=== PATIENT | male | born 1990 | race Caucasian/White ===

== ENCOUNTER 2016-09-29 18:02 | Emergency (ER) | payer SELFPAY ==
[~2016-09-29] VITALS: Wt 117.9 kg
[2016-09-29] MEDS ORDERED: MEDROL DOSEPAK4 MG PO (19:35)
[2016-09-29] MEDS ORDERED: AMOXICILLIN500 M2 PO (19:35)
== END 2016-09-29 18:29 | disposition home or self-care (01) ==
LOC: ED 18:02
DX: J40 Bronchitis, not specified as acute or chronic (principal); F17.200 Nicotine dependence, unspecified, uncomplicated; Z88.8 Allergy status to other drugs, medicaments and biological substances